=== PATIENT | female | born 1950 | race Caucasian/White ===

== ENCOUNTER 2017-08-07 09:52 | Outpatient (CLI) | payer OTHER | END 2017-08-07 10:00 | disposition home or self-care (01) | LOC: LAB 09:52 | DX: R10.9 Unspecified abdominal pain (principal); D64.9 Anemia, unspecified; E78.5 Hyperlipidemia, unspecified; R80.9 Proteinuria, unspecified; E55.9 Vitamin D deficiency, unspecified; E11.9 Type 2 diabetes mellitus without complications; E03.9 Hypothyroidism, unspecified; Z12.11 Encounter for screening for malignant neoplasm of colon; N39.0 Urinary tract infection, site not specified ==

== ENCOUNTER → 2018-07-29 07:55 | Outpatient (CLI) | payer OTHER | END | disposition home or self-care (01) | LOC: LAB 07:55 | DX: E03.8 Other specified hypothyroidism (principal); I10 Essential (primary) hypertension; N95.1 Menopausal and female climacteric states; M85.80 Other specified disorders of bone density and structure, unspecified site; D50.8 Other iron deficiency anemias; N39.0 Urinary tract infection, site not specified ==

== ENCOUNTER 2018-07-29 09:24 | Outpatient (CLI) | payer OTHER | END 2018-07-29 17:00 | disposition home or self-care (01) | LOC: SONOGRAMA 09:24 | DX: N83.201 Unspecified ovarian cyst, right side (principal) ==